=== PATIENT | male | born 2000 | race Caucasian/White ===

== ENCOUNTER 2022-08-02 18:41 | Emergency (ER) | payer OTHER ==
[2022-08-02 19:10] VITALS: BP 135/70; PULSE 55
== END 2022-08-02 19:41 | disposition home or self-care (01) ==
LOC: JD.ED 18:41
DX: S61.217A Laceration without foreign body of left little finger without damage to nail, initial encounter (principal); W26.8XXA Contact with other sharp object(s), not elsewhere classified, initial encounter
CPT/HCPCS: 12001; 99282